=== PATIENT | male | born 1960 | race Caucasian/White ===

== ENCOUNTER 2020-05-17 15:10 | Outpatient (CLI) | payer MEDICARE, SELFPAY ==
[2020-05-17 15:32] LABS: Basophils Absolute Auto 0.01 K/mm3 (0.00-0.10); Basophils Percent Auto 0.1 % (0.0-1.0); Eosinophils Absolute Auto 0.02 K/mm3 (0.02-0.50); Eosinophils Percent Auto 0.3 % (1.0-6.0); Hematocrit 43.2 % (40.0-54.0); Hemoglobin 14.5 g/dL (14.0-18.0); Immature Granulocyte Absolute 0.02 K/mm3 (0.00-0.00); Immature Granulocyte Percent A 0.3 % (0.0-0.0); Lymphocytes Absolute Auto 1.58 K/mm3 (1.10-4.50); Lymphocytes Percent Auto 21.1 % (18.0-42.0); Mean Corpuscular HGB Conc 33.6 g/dL (32.0-36.0); Mean Corpuscular Hemoglobin 30.5 pg (27.0-31.0); Mean Corpuscular Volume 90.9 fL (78.0-102.0); Mean Platelet Volume 11.1 fl (8.7-11.0); Monocytes Absolute Auto 0.29 K/mm3 (0.10-0.90); Monocytes Percent Auto 3.9 % (2.0-11.0); Neutrophils Absolute Auto 5.6 K/mm3 (1.7-7.2); Neutrophils Percent Auto 74.3 % (50.0-70.0); Platelet Count Result 183 K/mm3 (150-420); Red Blood Count 4.75 M/mm3 (4.70-6.10); Red Cell Distribution Width 12.4 % (11.6-14.4); White Blood Count 7.5 K/mm3 (4.8-10.8)
[2020-05-17 16:14] LABS: Thyroid Stimulating Hormone Reflex 0.85 u/IU/mL (0.36-3.74)
[2020-05-17 16:17] LABS: Alanine Aminotransferase 15 U/L (16-63); Albumin Level 4.4 g/dL (3.4-5.0); Alkaline Phosphatase 113 U/L (46-116); Anion Gap 12.2 mmol/L (7-16); Aspartate Amino Transferase 16 U/L (15-37); Bilirubin,Total 0.7 mg/dL (0.00-1.00); Blood Urea Nitrogen 7 mg/dL (7-18); Calcium 9.6 mg/dL (8.5-10.1); Carbon Dioxide 29 mmol/L (21-32); Chloride 105 mmol/L (98-108); Cholesterol 172 mg/dL (0-200); Estimated Glomerular Filt Rate > 60; Ferritin 45 ng/mL (26-388); Glucose 97 mg/dL (70-99); HDL Direct 37 mg/dL (40-60); Iron 57 ug/dL (65-175); LDL Cholesterol Calculated 110 mg/dL (<130); Osmolality Calculated 292 mOsm/kg (285-295); Percent Iron Saturation 16 % (12-57); Potassium 4.2 mmol/L (3.5-5.1); Sodium 142 mmol/L (136-145); Total Protein 7.5 g/dL (6.4-8.2); Triglycerides 127 mg/dL (0-150)
[2020-05-17 16:21] LABS: CRP < 0.2 mg/dL (0.0-0.9)
[2020-05-17 16:36] LABS: Erythrocyte Sedimentation Rate 19 mm/hr (0-20)
== END 2020-05-17 15:11 | disposition home or self-care (01) ==
LOC: CHSLAB 15:15
PROVIDERS: PCP Family Medicine; Visit Provider Family Medicine
DX: R63.0 Anorexia (principal); R03.0 Elevated blood-pressure reading, without diagnosis of hypertension; F41.9 Anxiety disorder, unspecified; Z79.899 Other long term (current) drug therapy; R53.83 Other fatigue; D50.0 Iron deficiency anemia secondary to blood loss (chronic)
CPT/HCPCS: 36415; 80053; 80061; 82728; 83540; 83550; 84443; 85025; 85652; 86140

== ENCOUNTER 2020-07-27 03:22 | Emergency (ER) | payer MEDICARE, SELFPAY ==
--- NOTE | ~2020-07-27 | CT_ITS ---
EXAMINATION: CT lumbar spine wo con DATE: 07/27/2020 04:42 INDICATION: Back injury. TECHNIQUE: Computed tomography (CT) of the lumbar spine was performed without intravenous contrast. A utomated exposure control and iterative reconstruction technique were employed. The dose-length produ ct was 320.21 mGy-cm. COMPARISON: None FINDINGS: There are changes of cholecystectomy. There is 7 degrees dextrocurvature of lumbar spine. V ertebral body heights are normal. There is mildly decreased disc height at L2-L3 and severely decreas ed disc height at L3-L4 and L5-S1. The following disc levels are specifically discussed: L1-L2: The disc does not extend beyond the endplate margin. There is mild bilateral facet joint osteo arthritis. There is no neural foraminal stenosis. There is no central canal stenosis. L2-L3: The disc is bulging. There is severe bilateral facet joint osteoarthritis. There is mild bilat eral neural foraminal stenosis. There is mild central canal stenosis. L3-L4: The disc is bulging. There is severe bilateral facet joint osteoarthritis. There is mild right and moderate left neural foraminal stenosis. There is mild central canal stenosis. L4-L5: The disc is bulging. There is severe bilateral facet joint osteoarthritis. There is mild bilat eral neural foraminal stenosis. There is mild central canal stenosis. L5-S1: The disc is bulging. There is severe right and moderate left facet joint osteoarthritis. There is mild bilateral neural foraminal stenosis. There is mild central canal stenosis. IMPRESSION: 1. No fracture. 2. Severe lumbar spondylosis. Reviewed, dictated and finalized at location A.
[2020-07-27 03:22] VITALS: BP 108/73; PULSE 98; RESP 20; TEMP 36.6; O2SAT 98
--- NOTE | 2020-07-27 03:34 | ED.BACK ---
HPI - Back Pain/Injury General Chief Complaint: Back Pain/Injury Stated Complaint: Lower back pain Time Seen by Provider: 07/27/20 03:34 Source: patient Mode of arrival: ambulatory Limitations: no limitations History of Present Illness HPI Narrative: 60-year-old man with a history of low back pain comes in today complaining of pain today that started after the maxwell of his truck fell on his lower back while he was working on it. He denies any weakness, numbness, incontinence, numbness or tingling. States that he has had no prior back surgeries. MD elicited complaint: back injury Pertinent past history: prior back pain Onset (ago): hour(s) Timing: constant Severity: severe Similar Symptoms Previously: No Quality: sharp and aching Location: lumbar spine Radiation: none Exacerbating factors: movement Relieving factors: none Context: other ( Direct blow) Related Data Allergies Allergy/AdvReac Type Severity Reaction Status Date / Time No Known Allergies Allergy Verified 07/26/20 16:04 Review of Systems Constitutional: Constitutional: Denies chills and Denies fever(s) Cardiovascular: Cardiovascular: Denies chest pain and Denies radiating jaw, neck or arm pain Respiratory: Respiratory: Denies cough, Denies dyspnea and Denies wheezing Gastrointestinal: Gastrointestinal: Denies abdominal pain, Denies nausea and Denies vomiting Genitourinary: Genitourinary: Denies dysuria and Denies urinary frequency Musculoskeletal: Musculoskeletal: Reports back pain, Denies arthralgias and Denies joint swelling Integumentary/Breasts: Skin/Breast: Denies pruritus, Denies erythema and Denies rash Neurologic: Denies vertigo, Denies dizziness and Denies syncope Hematologic/Lymphatic: Hematologic/Lymphatic: Denies easy bleeding and Denies easy bruising PMFSH Past Medical History Medical History Anxiety state, unspecified Chronic low back pain Nicotine addiction Surgical History Surgical History Hx of cholecystectomy Social History Social History Smoking status: Current every day smoker Alcohol intake: never Substance use: never Substance use type: does not use Exam Const: General: alert Nutritional Appearance: thin Orientation/consciousness: patient oriented x3 Limitations: no limitations Other: moderate acute distress. Eyes: Conjunctivae: conjunctivae normal Pupils: Equal, round and reactive pupils present EOM: EOMs intact bilaterally Resp: Effort & Inspection: normal respiratory effort and not labored Auscultation: clear to auscultation bilaterally, no rales, no rhonchi and no wheezes Cardio: Rate: regular rate Rhythm: regular rhythm Heart sounds: no murmurs Back/Spine/Pelvis: Other: Mild tenderness palpation of the lower aspect of the lumbar spine. No redness, swelling, abnormal contour. Skin: General skin exam: normal color, no jaundice and no pallor Rashes: no rashes Neuro: General: patient oriented x3, moves all extremities, no focal motor deficits and CN's II-XI intact bilaterally Speech: normal speech Gait exam (Neuro): Normal gait present Extrem: General: normal to inspection and no clubbing, cyanosis or edema Psych: Appearance: grossly normal and well kempt Affect: normal affect Attitude: cooperative Thought content: Yes Normal thought content present Course Vital Signs Vital signs: Vital Signs Temperature 36.6 C 07/27/20 03:22 Pulse Rate 98 07/27/20 03:22 Respiratory Rate 07/27/20 03:22 Blood Pressure 108/73 07/27/20 03:22 Pulse Oximetry 98 07/27/20 03:22 Temperature 36.6 C 07/27/20 03:22 Pulse Rate 98 07/27/20 03:22 Respiratory Rate 07/27/20 03:22 Blood Pressure 108/73 07/27/20 03:22 Pulse Oximetry 98 07/27/20 03:22 MDM - Back Pain/Injury Lab Data Labs: Lab Result
[2020-07-27] MEDS: KETOROLAC (*BKC) 60 MG/2 ML VIAL IM (03:57)
[2020-07-27 04:05] LABS: Add Urine Microscopic? NO; Appearance Urine Clear (Clear); Bilirubin Urine Negative (Negative); Blood Urine Negative (Negative); Color Urine Yellow (Yellow); Glucose Urine UA Negative (Negative); Ketones Urine Negative (Negative); Leukocyte Esterase Ur Negative (Negative); Nitrate Urine Negative (Negative); Protein Urine Negative (Negative); Urobilinogen Urine 0.2 mg/dL (0.2-1.0); pH Urine 6.5 (5.0-8.0)
[2020-07-27 04:14] LABS: Amphetamine Screen Urine Negative (Negative); Barbiturate Screen Urine Negative (Negative); Benzodiazepines Screen Urine Positive (Negative); Cannabinoid Screen Urine Positive (Negative); Cocaine Screen Urine Negative (Negative); Methadone Screen Urine Negative (Negative); Opiate Screen Urine Negative (Negative); Phencyclidine Screen Urine Negative (Negative)
--- NOTE | 2020-07-27 04:46 | PC.NURSE ---
pt resting per cot. awaiting ct results. no complaints voiced at this time.
[2020-07-27 05:16] VITALS: PULSE 87; RESP 20; TEMP 37.1; O2SAT 98
[2020-07-27 05:20] VITALS: BP 105/71
== END 2020-07-27 05:27 | disposition home or self-care (01) ==
PROVIDERS: Emergency Provider Emergency Medicine; PCP Family Medicine
DX: M54.5 Low back pain (principal); S30.0XXA Contusion of lower back and pelvis, initial encounter; W22.8XXA Striking against or struck by other objects, initial encounter
CPT/HCPCS: 72131; 80307; 81003; 96372; 99283; 99284; J1885

== ENCOUNTER 2021-02-15 14:28 | Outpatient (CLI) | payer MEDICARE, SELFPAY | END 2021-02-15 14:29 | disposition home or self-care (01) | LOC: ANHCOVIDVC 14:28 | PROVIDERS: PCP Family Medicine | DX: Z23 Encounter for immunization (principal) | CPT/HCPCS: 0001A; 91300 ==

== ENCOUNTER 2021-03-09 14:26 | Outpatient (CLI) | payer MEDICARE, SELFPAY | END 2021-03-09 14:27 | disposition home or self-care (01) | LOC: ANHCOVIDVC 14:27 | PROVIDERS: PCP Family Medicine | DX: Z23 Encounter for immunization (principal) | CPT/HCPCS: 0002A; 91300 ==